=== PATIENT | female | born 1940 | race Caucasian/White ===

== ENCOUNTER → 2017-09-13 | Outpatient (CLI) | payer MEDICARE ==
[~2017-09-13] MED LIST: ASPI81TA94 PO; ATOR20TA22 PO; ATOR20TA65 PO; ATOR40TA69 PO; CALC-475 PO; DIC50 PO; DICL-195 PO; EZET10TA41 PO; EZET1TAB61 PO; GABA-549 PO; GLUC100026 PO; GLUC1TAB35 PO; HCTZ25 PO; HYDR-2966 PO; LAN30PT PO; LANS30CA70 PO; LEV88 PO; LEVO-3 PO; LEVO100T95 PO; LEVO88TA43 PO; METH-278 PO; NSAID; RAL60 PO; SALM1CAP3 PO; UBID10CA11 PO; [UNRECOGNIZED DRUG - CODE] PO
--- NOTE | 2017-09-13 15:47 | RADIOLOGY IMAGING REPORT ---
FACILITY: [facility] - [place] PATIENT NAME: LENNIE CABAN : [id number] MR: [id number] V: [id number] EXAM DATE: [id number] ORDERING PHYSICIAN: SUSSY BASURTO TECHNOLOGIST: Isabel Machado PROCEDURE:BILATERAL DIGITAL SCREENING MAMMOGRAM WITH CAD ASSISTED INTERPRETATION & 3D TOMOSYNTHESIS COMPARISON:Prior mammograms 09/12/16, 09/12/15, 09/09/14, 09/02/13, 03/03/13. INDICATIONS:SCREENING FINDINGS: A small to moderate amount of fibroglandular tissue is seen throughout the breasts. The parenchymal pattern has remained stable allowing for difference in mammographic technique & patient positioning. There is no evidence of malignant appearing mass, malignant appearing calcifications or other secondary sign of malignancy in either breast. DIAGNOSTIC CATEGORY 1--NEGATIVE. RECOMMENDATIONS: ROUTINE MAMMOGRAM AND CLINICAL EVALUATION. IMPRESSION: BIRADS 1: Negative. No significant abnormality is seen. Dictated by: Beckie Morales M.D. on 09/13/2017 at 15:31 Transcribed by: AMADOR on 09/13/2017 at 15:41 Approved by: Beckie Morales M.D. on 09/13/2017 at 15:46 [facility]
== END ==
LOC: MAMO 03:58
PROVIDERS: ATTEND Internal Medicine
DX: Z12.31 Encounter for screening mammogram for malignant neoplasm of breast (principal)
CPT/HCPCS: 77063; 77067

== ENCOUNTER 2017-10-16 01:11 | Day surgery (SDC) | payer MEDICARE ==
[~2017-10-16] VITALS: Ht 160 cm; Wt 70.8 kg
[~2017-10-16 01:11] MED LIST changes: +ALBU8.5H IH; +AMOX-559 PO; +METH4TAB66 PO
[2017-10-16 06:45] VITALS: BP 127/85
[2017-10-16] MEDS ORDERED: LIDOCAINE/SOD BICARB 8.4% SYR ID ONE (07:10)
[2017-10-16] MEDS ORDERED: NORMOSOL R SOLN(*) 1000 ML BAG 1,000 ML IV PRN (07:10)
[2017-10-16 08:22] VITALS: BP 128/70
--- NOTE | 2017-10-16 08:27 | Short(Outpt) Discharge Summary ---
Discharge Summary Reason for Hosp/Final Diag: (1) History of colon polyps Status: Chronic Hospital Course & Plan: Colonoscopy completed without problems: normal except sigmoid diverticulosis, next c-scope in 5 years due to FH. (2) FH: colon cancer Departure Discharge to: Home, Self Care Discharge Instructions Home Meds Active Scripts Atorvastatin Calcium (ATORVASTATIN CALCIUM) 20 Mg Tablet, 1 TAB PO QDAY, #90 TAB 1 Refill Prov:SUSSY BASURTO MD 09/30/17 Hydrochlorothiazide (HYDROCHLOROTHIAZIDE) 25 Mg Tablet, 1 TAB PO QDAY, #90 TAB 2 Refills Prov:SUSSY BASURTO MD 09/30/17 Diclofenac Sodium (DICLOFENAC SODIUM) 75 Mg Tablet., 1 TAB PO BID, #180 TAB 3 Refills Prov:SUSSY BASURTO MD 01/04/17 Levothyroxine Sodium (SYNTHROID) 100 Mcg Tablet, 1 TAB PO QDAY, #90 TAB 4 Refills Prov:SUSSY BASURTO MD 09/20/16 Reported Medications Glucosamine/Msm/Chondroitin A (GLUCOSAMINE CHONDROIT MSM TAB) 1 Each Tablet, 1 TAB PO QDAY, 07/30/17 Lansoprazole (PREVACID) 30 Mg Capsule., 1 CAP PO QDAY 07/13/14 Ubidecarenone (CO Q-10) 10 Mg Capsule, 1 CAP PO QDAY 07/13/14 Aspirin (ASPIRIN) 81 Mg Tab.chew, 1 TAB PO 2XW 01/13/14 Ezetimibe (ZETIA) 10 Mg Tablet, 1 TAB PO QODAY 01/13/14 Discontinued Scripts Amoxicillin/Pot Clav 875-125 Mg Tab (AUGMENTIN 875-125 TABLET) 1 Each Tablet, 1 TAB PO Q12H for 7 Days, #14 TAB 0 Refills Prov:EZRA ORTIZP-BC 09/23/17 Methylprednisolone (METHYLPREDNISOLONE) 4 Mg Tab.ds.pk, 4 MG PO DIRECTED, #1 PACK 0 Refills Prov:EZRA ORTIZP-BC 09/23/17 Albuterol Sulfate 90 Mcg/Act (PROAIR HFA 90 MCG/ACT) 8.5 Gm Hfa.aer.ad, 2 PUFF IH Q4-6H, #1 INHALER 0 Refills Prov:EZRA ORTIZP-BC 09/23/17 Diet: Regular Activity: As Tolerated Special Instructions: Your colonoscopy was completed without problems and your prep was excellent (Good Job!!). I didn't find any polyps or cancers. I recommend that your next colonoscopy be in 5 year for screening due to your family history. If that one is normal, that may be your last colonoscopy! ERIKA HERNÁNDEZ MD Oct 16, 2017 08:27
[2017-10-16 08:40] VITALS: BP 122/73
[2017-10-16] MEDS ORDERED: PROPOFOL EMUL(*) 10MG/ML 20 ML 40 ML ONE (08:47)
[2017-10-16] MEDS ORDERED: LIDOCAINE MPF 1% 5 ML VIAL ONE (08:47)
[2017-10-16 08:54] VITALS: BP 109/61
[2017-10-16 08:55] VITALS: BP 99/58
== END 2017-10-16 09:18 | disposition home or self-care (01) ==
LOC: OR 01:11
PROVIDERS: ATTEND Surgery
DX: Z12.11 Encounter for screening for malignant neoplasm of colon (principal); K57.30 Diverticulosis of large intestine without perforation or abscess without bleeding; Z80.0 Family history of malignant neoplasm of digestive organs
CPT/HCPCS: 00811; G0121; J2001; J2704

== ENCOUNTER → 2018-10-07 | Outpatient (CLI) | payer MEDICARE ==
--- NOTE | 2018-10-08 15:56 | RADIOLOGY IMAGING REPORT ---
FACILITY: [facility] PATIENT NAME: LENNIE CABAN : [id number] MR: [id number] V: [id number] EXAM DATE: [id number] ORDERING PHYSICIAN: ERIKA KUMAR TECHNOLOGIST: Isabel Machado PROCEDURE: BILATERAL DIGITAL SCREENING MAMMOGRAM WITH CAD ASSISTED INTERPRETATION & 3D TOMOSYNTHESIS. REASON FOR STUDY: Screening. COMPARISON: 09/13/2017 & 09/12/2016. VIEWS OBTAINED: 2D & 3D full field CC & MLO projections. BREAST DENSITY: Breast tissue demonstrates scattered fibroglandular tissue elements. MAMMOGRAM FINDINGS: There is no suspicious mass, calcification, or architectural distortion. IMPRESSION: BIRADS 1: Negative. DIAGNOSTIC CATEGORY 1--NEGATIVE. RECOMMENDATIONS: ROUTINE MAMMOGRAM AND CLINICAL EVALUATION IN 1YR. Dictated by: Steven Key M.D. on 10/08/2018 at 12:28 Transcribed by: AMADOR on 10/08/2018 at 14:16 Approved by: Steven Key M.D. on 10/08/2018 at 15:51 [facility]
== END ==
LOC: MAMO 01:58
PROVIDERS: ATTEND Family Medicine
DX: Z12.31 Encounter for screening mammogram for malignant neoplasm of breast (principal); Z80.3 Family history of malignant neoplasm of breast
CPT/HCPCS: 77063; 77067